=== PATIENT | male | born 1995 | race African-American/Black ===

== ENCOUNTER 2018-05-28 08:47 | Outpatient (RCR) | payer BC, OTHER | END 2018-07-17 08:48 | disposition home or self-care (01) | DX: M25.551 Pain in right hip (principal) ==

== ENCOUNTER 2018-08-19 09:04 | Outpatient (RCR) | payer OTHER | END 2018-09-30 13:24 | disposition home or self-care (01) | PROVIDERS: ATTEND Surgery | DX: Z48.815 Encounter for surgical aftercare following surgery on the digestive system (principal); R10.31 Right lower quadrant pain ==

== ENCOUNTER → 2018-11-24 | Outpatient (CLI) | payer OTHER ==
--- NOTE | 2018-11-24 10:34 | Diagnostic Imaging Report ---
PROCEDURE: MRI right joint lower extremity without contrast. TECHNIQUE: Multiplanar, multisequence non contrast-enhanced MRI of the pelvis with small [id number] sequences of the right hip. INDICATION: Sports hernia with surgery in August 2018. Collins a pop in the right hip while practicing. COMPARISON: None. FINDINGS: No acute fracture or dislocation is seen in the pelvis or right hip. Alignment appears normal. The femoral heads are well-seated in the acetabula bilaterally. There is minimal bone marrow edema at the pubis bilaterally. No significant joint effusion is seen. The right hip acetabular labrum demonstrates no discrete tear, although there is suggestion of minimal fraying at the superior labrum (image 10 series 6 and image 10 series 5). No significant paralabral cyst is seen. There is increased fluid sensitive signal at the pubic symphysis, with mildly increased fluid signal at the aponeurosis, right greater than left. No fluid collection is seen. There is edema in the right iliopsoas muscle about the tendon, with a small of amount of fluid in the bursa. No tendon tear is seen. The left iliopsoas tendon appears normal. The right gluteus medius and minimus tendons appear intact. There is no greater trochanteric bursitis. The hamstring tendons are intact. There is focal edema and fiber irregularity at the anterior aspect of the right pectineus and adductor longus musculature. The remainder of the musculature about the pelvis is unremarkable. No significant free fluid is seen in the pelvis. No adenopathy or masses are seen. IMPRESSION: 1. Increased fluid sensitive signal at the pubic symphysis and aponeurosis, right greater than left, consistent with patient history of athletic pubalgia. There is minimal associated bone marrow edema. 2. Grade 1 strain of the right iliopsoas muscle with mild iliopsoas bursitis. 3. Grade 2 strains of the right pectineus and adductor longus musculature anteriorly. 4. Minimal irregularity of the acetabular labrum without discrete tear or paralabral cyst seen. If clinically indicated, MR arthrogram could be performed. Dictated by: Dictated on workstation # [id number]
== END ==
LOC: RAD 07:55
PROVIDERS: ATTEND Orthopaedic Surgery
DX: S76.011A Strain of muscle, fascia and tendon of right hip, initial encounter (principal); S76.211A Strain of adductor muscle, fascia and tendon of right thigh, initial encounter; M70.71 Other bursitis of hip, right hip; Z98.890 Other specified postprocedural states
CPT/HCPCS: 73721